=== PATIENT | female | born 1945 | race Caucasian/White ===

== ENCOUNTER 2016-09-05 05:38 | Day surgery (SDC) | payer MEDICARE, OTHER ==
[~2016-09-05] VITALS: Ht 157.5 cm; Wt 79.2 kg
[~2016-09-05 05:38] MED LIST: HCTZ 25MG TAB25 MG PO; NORCO 325 MG-51 TAB PO; SINGULAIR 110 MG/TAB PO; VALIUM 5MG T5 MG/TAB PO; ZESTRIL 20MG TA20 MG PO
[2016-09-05 06:41] VITALS: BP 125/65; PULSE 78; TEMP 97.7
[2016-09-05] MEDS ORDERED: SEREVENT IH (06:52)
[2016-09-05] MEDS ORDERED: RT SPIRIVA18 MCG IH (06:52)
[2016-09-05] MEDS ORDERED: PROAIR HFA0.09 MG/AC IH (06:54)
[2016-09-05] MEDS ORDERED: LASIX 40MG TABL40 MG PO ×2 (06:55→07:06)
[2016-09-05] MEDS ORDERED: IRON325 MG PO (07:06)
[2016-09-05] MEDS ORDERED: THEO-24 20200 MG/CAP PO (07:07)
[2016-09-05] MEDS ORDERED: ATARAX 25MG25 MG/TAB PO (07:07)
[2016-09-05] MEDS ORDERED: BANOPHEN25 M1 PO (07:08)
[2016-09-05] MEDS ORDERED: K-TAB20 PO (07:08)
[2016-09-05] MEDS ORDERED: NORCO 325 MG-101 TAB PO (07:09)
[2016-09-05] MEDS ORDERED: CUTIVATE30 GM TOP (07:09)
[2016-09-05] MEDS ORDERED: B COMPLEX #11 TA1 PO (07:10)
[2016-09-05] MEDS ORDERED: VITAMIN D1000 IU PO (07:10)
[2016-09-05 08:25] VITALS: BP 116/65; PULSE 87; TEMP 98.1
[2016-09-05 08:40] VITALS: BP 103/54; PULSE 85
[2016-09-05 08:55] VITALS: BP 106/66; PULSE 82
[2016-09-05] MEDS ORDERED: TYLENOL W/COD1 UDTAB PO (08:55)
[2016-09-05 09:10] VITALS: BP 100/57; PULSE 79
== END 2016-09-05 09:40 | disposition home or self-care (01) ==
LOC: SDCO 05:38
DX: M72.0 Palmar fascial fibromatosis [Dupuytren] (principal)
CPT/HCPCS: J0690; J1885; J2405; J2704; J3010; J7120

== ENCOUNTER → 2017-01-01 | Outpatient (CLI) | payer MEDICARE, OTHER ==
[~2017-01-01] MED LIST changes: +ATARAX 25MG25 MG/TAB PO; +B COMPLEX #11 TA1 PO; +BANOPHEN25 M1 PO; +CUTIVATE30 GM TOP; +IRON325 MG PO; +K-TAB20 PO; +LASIX 40MG TABL40 MG PO; +NORCO 325 MG-101 TAB PO; +PROAIR HFA0.09 MG/AC IH; +RT SPIRIVA18 MCG IH; +SEREVENT IH; +THEO-24 20200 MG/CAP PO; +TYLENOL W/COD1 UDTAB PO; +VITAMIN D1000 IU PO
== END ==
LOC: MHCPAIN 12:00
DX: G89.29 Other chronic pain (principal); M47.817 Spondylosis without myelopathy or radiculopathy, lumbosacral region; M53.3 Sacrococcygeal disorders, not elsewhere classified; M50.90 Cervical disc disorder, unspecified, unspecified cervical region; R51 Headache; F17.210 Nicotine dependence, cigarettes, uncomplicated
CPT/HCPCS: G0463

== ENCOUNTER → 2017-02-10 | Outpatient (CLI) | payer MEDICARE, OTHER | LOC: MHCPAIN 13:13 | DX: G89.29 Other chronic pain (principal); M47.817 Spondylosis without myelopathy or radiculopathy, lumbosacral region; M53.3 Sacrococcygeal disorders, not elsewhere classified; F17.210 Nicotine dependence, cigarettes, uncomplicated | CPT/HCPCS: G0463 ==

== ENCOUNTER → 2017-05-12 | Outpatient (CLI) | payer MEDICARE, OTHER | LOC: MHCPAIN 10:56 | DX: G89.29 Other chronic pain (principal); M47.817 Spondylosis without myelopathy or radiculopathy, lumbosacral region; M53.3 Sacrococcygeal disorders, not elsewhere classified; M48.061 Spinal stenosis, lumbar region without neurogenic claudication | CPT/HCPCS: G0463 ==

== ENCOUNTER → 2017-08-13 | Outpatient (CLI) | payer MEDICARE, OTHER | LOC: MHCPAIN 10:23 | DX: G89.29 Other chronic pain (principal); M47.817 Spondylosis without myelopathy or radiculopathy, lumbosacral region; M54.16 Radiculopathy, lumbar region; M53.3 Sacrococcygeal disorders, not elsewhere classified; M48.061 Spinal stenosis, lumbar region without neurogenic claudication | CPT/HCPCS: G0463 ==

== ENCOUNTER → 2017-08-25 | Outpatient (CLI) | payer MEDICARE, OTHER | LOC: MHCPAIN 12:42 | DX: G89.29 Other chronic pain (principal); M47.817 Spondylosis without myelopathy or radiculopathy, lumbosacral region; M54.16 Radiculopathy, lumbar region; M53.3 Sacrococcygeal disorders, not elsewhere classified; M41.9 Scoliosis, unspecified | CPT/HCPCS: G0463 ==

== ENCOUNTER → 2017-09-19 | Outpatient (CLI) | payer MEDICARE, OTHER | LOC: MHCPAIN 10:13 | DX: G89.29 Other chronic pain (principal); M47.817 Spondylosis without myelopathy or radiculopathy, lumbosacral region; M54.16 Radiculopathy, lumbar region; M53.3 Sacrococcygeal disorders, not elsewhere classified; M47.814 Spondylosis without myelopathy or radiculopathy, thoracic region; M48.061 Spinal stenosis, lumbar region without neurogenic claudication | CPT/HCPCS: G0463 ==

== ENCOUNTER → 2017-12-24 | Outpatient (CLI) | payer MEDICARE, OTHER | LOC: MHCPAIN 09:49 | DX: G89.29 Other chronic pain (principal); M47.817 Spondylosis without myelopathy or radiculopathy, lumbosacral region; M54.16 Radiculopathy, lumbar region; M53.3 Sacrococcygeal disorders, not elsewhere classified; M47.814 Spondylosis without myelopathy or radiculopathy, thoracic region | CPT/HCPCS: G0463 ==

== ENCOUNTER → 2018-03-25 | Outpatient (CLI) | payer MEDICARE, OTHER | LOC: MHCPAIN 10:52 | DX: G89.29 Other chronic pain (principal); M47.817 Spondylosis without myelopathy or radiculopathy, lumbosacral region; M54.16 Radiculopathy, lumbar region; M53.3 Sacrococcygeal disorders, not elsewhere classified; M47.814 Spondylosis without myelopathy or radiculopathy, thoracic region | CPT/HCPCS: G0463 ==

== ENCOUNTER → 2018-06-30 | Outpatient (CLI) | payer MEDICARE, OTHER | LOC: MHCPAIN 10:46 | DX: G89.29 Other chronic pain (principal); M47.817 Spondylosis without myelopathy or radiculopathy, lumbosacral region; M54.16 Radiculopathy, lumbar region; M53.3 Sacrococcygeal disorders, not elsewhere classified; M47.814 Spondylosis without myelopathy or radiculopathy, thoracic region | CPT/HCPCS: G0463 ==

== ENCOUNTER → 2018-07-06 | Outpatient (CLI) | payer MEDICARE, OTHER | LOC: MHCPAIN 10:52 | DX: M47.817 Spondylosis without myelopathy or radiculopathy, lumbosacral region (principal); M54.16 Radiculopathy, lumbar region | CPT/HCPCS: J1100; Q9967 ==

== ENCOUNTER → 2018-09-30 | Outpatient (CLI) | payer MEDICARE, OTHER | LOC: MHCPAIN 10:27 | DX: G89.29 Other chronic pain (principal); M47.817 Spondylosis without myelopathy or radiculopathy, lumbosacral region; M54.16 Radiculopathy, lumbar region; M53.3 Sacrococcygeal disorders, not elsewhere classified; M47.814 Spondylosis without myelopathy or radiculopathy, thoracic region | CPT/HCPCS: G0463 ==

== ENCOUNTER → 2018-12-22 | Outpatient (CLI) | payer MEDICARE, OTHER | LOC: MHCPAIN 10:04 | DX: G89.29 Other chronic pain (principal); M47.817 Spondylosis without myelopathy or radiculopathy, lumbosacral region; M54.16 Radiculopathy, lumbar region; M53.3 Sacrococcygeal disorders, not elsewhere classified; M47.814 Spondylosis without myelopathy or radiculopathy, thoracic region | CPT/HCPCS: G0463 ==

== ENCOUNTER → 2019-02-24 | Outpatient (CLI) | payer MEDICARE, OTHER ==
[~2019-02-24] MED LIST changes: +ALDACTONE 25MG25 M1 PO; +ASPIRIN E.C. 8181 MG PO; +IBU800 M1 PO; +LEVAQUIN 5500 MG/TA1 PO; +LIDODERM 5% PATC1 EA TP; +LIPITOR20 MG PO; +MEDROL 4MG DOSPA4 MG PO; +NEURONTIN100 MG/CAP PO; +NEURONTIN300 MG/CAP PO; +NICODERM C14 MG/PATC TD; +PREDNISONE20 MG PO; +ZANAFLEX CAPSULE2 MG PO
== END ==
LOC: MHCPAIN 12:24
DX: M47.817 Spondylosis without myelopathy or radiculopathy, lumbosacral region (principal); M54.16 Radiculopathy, lumbar region
CPT/HCPCS: G0463

== ENCOUNTER → 2019-02-25 | Outpatient (CLI) | payer MEDICARE, OTHER | LOC: MHCPAIN 08:22 | DX: M48.07 Spinal stenosis, lumbosacral region (principal) | CPT/HCPCS: J1100; Q9967 ==

== ENCOUNTER → 2019-03-10 | Outpatient (CLI) | payer MEDICARE, OTHER | LOC: MHCPAIN 10:30 | DX: M47.817 Spondylosis without myelopathy or radiculopathy, lumbosacral region (principal); M54.16 Radiculopathy, lumbar region | CPT/HCPCS: G0463 ==

== ENCOUNTER 2019-03-14 09:04 | Emergency (ER) | payer MEDICARE, OTHER ==
[~2019-03-14] VITALS: Ht 154.9 cm; Wt 72.3 kg
[~2019-03-14 09:04] MED LIST changes: -ALDACTONE 25MG25 M1 PO; -ASPIRIN E.C. 8181 MG PO; -IBU800 M1 PO; -LEVAQUIN 5500 MG/TA1 PO; -LIDODERM 5% PATC1 EA TP; -LIPITOR20 MG PO; -MEDROL 4MG DOSPA4 MG PO; -NEURONTIN100 MG/CAP PO; -NEURONTIN300 MG/CAP PO; -NICODERM C14 MG/PATC TD; -PREDNISONE20 MG PO; -ZANAFLEX CAPSULE2 MG PO
[2019-03-14 09:11] VITALS: TEMP 98.5
[2019-03-14] MEDS ORDERED: NORCO 325 MG-101 TAB PO (09:23)
[2019-03-14] MEDS ORDERED: ZANAFLEX CAPSULE2 MG PO (09:23)
[2019-03-14] MEDS ORDERED: NEURONTIN100 MG/CAP PO ×2 (09:31)
[2019-03-14] MEDS ORDERED: PREDNISONE20 MG PO (10:57)
[2019-03-14] MEDS ORDERED: NEURONTIN300 MG/CAP PO (11:18)
[2019-03-14 11:35] VITALS: BP 140/73; PULSE 74
== END 2019-03-14 11:35 | disposition home or self-care (01) ==
LOC: COL.ER 09:04
DX: M54.5 Low back pain (principal); J44.9 Chronic obstructive pulmonary disease, unspecified; F17.210 Nicotine dependence, cigarettes, uncomplicated; Z90.89 Acquired absence of other organs; Z79.51 Long term (current) use of inhaled steroids
CPT/HCPCS: J1170; J1885

== ENCOUNTER 2019-03-26 19:00 | Inpatient (IN) | payer MEDICARE, OTHER ==
[~2019-03-26] VITALS: Ht 154.9 cm; Wt 78.3 kg
[~2019-03-26 19:00] MED LIST changes: +NEURONTIN100 MG/CAP PO; +NEURONTIN300 MG/CAP PO; +PREDNISONE20 MG PO; +ZANAFLEX CAPSULE2 MG PO
[2019-03-26 20:13] LABS: BASO % 0.1 % (0.0-2.0); EOS % 0.1 % (0-4.0); GRAN # 6.5 (1.4-6.5); HEMOGLOBIN 10.2 g/dl (12.5-16.0); LYMPH # 1.3 (1.2-3.4); LYMPH % 15.6 % (20.0-51.0); MEAN CELL VOLUME 96 fl (80.0-100.0); MEAN CORPUSCULAR HEMOGLOBIN 31 pg (27.0-31.0); MEAN CORPUSCULAR HGB CONC 33 g/dl (33.0-37.0); MONO # 0.6 (0.1-0.6); PLATELET COUNT 278 K/mm3 (130-400); RED BLOOD COUNT 3.25 M/mm3 (4.10-5.30); REDCELL DISTRIBUTION WIDTH-CV 16.4 % (11.5-14.5)
[2019-03-26 20:17] LABS: ARTERIAL BLD GAS O2 SATURATION 85.8 % (92-100); ARTERIAL BLD GAS TCO2 CT 33.6; ARTERIAL BLOOD GAS BASE EXCESS 6.6 (-2-2); ARTERIAL BLOOD GAS HCO3 32.1 meq/L (22-26); ARTERIAL BLOOD GAS PCO2 50.1 mmHg (35-45); ARTERIAL BLOOD GAS pH 7.42 (7.35-7.45)
[2019-03-26 20:18] LABS: HEMATOCRIT 31.3 % (37.0-47.0)
[2019-03-26 20:18] LABS: ARTERIAL BLOOD GAS PO2 48.3 mmHg (80-100)
[2019-03-26 20:28] LABS: ALANINE AMINOTRANSFERASE 13 U/L (9-52); ALBUMIN 3.4 gm/dL (3.5-5.0); ALKALINE PHOSPHATASE 54 U/L (50-136); ANION GAP 6 mmol/L (7-16); AST,SGOT 13 U/L (15-37); BILIRUBIN,TOTAL 0.3 mg/dL (0.0-1.0); BLOOD UREA NITROGEN 27 mg/dL (7-17); C-REACTIVE PROTEIN 6.4 mg/dL (0.0-0.9); CALCIUM 9.5 mg/dL (8.4-10.2); CARBON DIOXIDE 30 mmol/L (22-30); CHLORIDE 102 mmol/L (98-107); CREATININE, serum 0.92 (0.52-1.25); GLUCOSE 118 mg/dL (74-106); POTASSIUM 3.8 mmol/L (3.4-5.0); SODIUM 138 mmol/L (137-145); TOTAL PROTEIN 6.5 gm/dL (6.4-8.2)
[2019-03-26 20:37] LABS: TROPONIN-I < 0.012 ng/mL (0.000-0.035)
[2019-03-26 22:07] VITALS: BP 155/59; PULSE 99; TEMP 98.9
--- NOTE | 2019-03-26 22:17 | NUR ---
Arrived to room 353 at this time
[2019-03-26] MEDS ORDERED: NEURONTIN300 MG/CAP PO (22:29)
[2019-03-26] MEDS ORDERED: LEVAQUIN 5500 MG/TA1 PO (22:33)
[2019-03-26] MEDS ORDERED: IBU800 M1 PO (22:34)
[2019-03-26] MEDS ORDERED: LIDODERM 5% PATC1 EA TP (22:35)
--- NOTE | 2019-03-26 22:42 | NUR ---
Assessment complete. Lungs dimished and coarse. Heart sounds normal. Bowels active x4. Pulses present throughout. Bilateral lower leg edema +3 and tender to touch. INT right forearm without complications. Orientated to medical floor and room. Will notify Dr. Lei of patient arrival and patient requested gabpentin for tonight. Will swab for RVP and obtain UA
[2019-03-26 23:34] LABS: MUCOUS Present /lpf; PH 5 (5-8); SQUAMOUS EPITHELIAL 0-2 /hpf; URINE APPEARANCE Clear; URINE BACTERIA None Seen /hpf; URINE BILIRUBIN Negative (NEGATIVE); URINE BLOOD Negative (NEGATIVE); URINE COLOR Straw; URINE GLUCOSE Negative (NEGATIVE); URINE KETONE Negative (NEGATIVE); URINE LEUKOCYTE ESTERASE Negative (NEGATIVE); URINE NITRATE Negative (NEGATIVE); URINE PROTEIN(semi-quant) Negative (NEGATIVE); URINE RBC 0-2 /hpf; URINE UROBILINOGEN Negative (NEGATIVE); URINE WBC 0-2 /hpf
[2019-03-26 23:38] VITALS: BP 130/62; PULSE 89; TEMP 98.8
[2019-03-26 23:38] LABS: COLLECTION METHOD CLEAN CATCH
--- NOTE | 2019-03-27 00:36 | NUR ---
Resting in bed. Denies needs. Call light in reach
--- NOTE | 2019-03-27 01:52 | NUR ---
Resting in bed asleep. Call light in reach.
[2019-03-27 03:49] VITALS: BP 137/60; PULSE 90; TEMP 98
--- NOTE | 2019-03-27 03:59 | NUR ---
Patient denies needs. Denies pain. Call light in reach.
--- NOTE | 2019-03-27 06:22 | NUR ---
Patient had uneventful night. Urine output recorded. Resting in bed this AM. Denies needs. Call light in reach.
--- NOTE | 2019-03-27 06:47 | NUR ---
Report given to CARMINA Huerta
[2019-03-27 07:23] VITALS: BP 138/62; PULSE 80; TEMP 97.9
[2019-03-27 08:47] LABS: BASO % 0.2 % (0.0-2.0); GRAN % 79.7 % (42.2-75.2); HEMOGLOBIN 10.8 g/dl (12.5-16.0); LYMPH # 0.8 (1.2-3.4); LYMPH % 13.2 % (20.0-51.0); MEAN CELL VOLUME 97 fl (80.0-100.0); MEAN CORPUSCULAR HEMOGLOBIN 32 pg (27.0-31.0); MEAN CORPUSCULAR HGB CONC 33 g/dl (33.0-37.0); MEAN PLATELET VOLUME 9.5 fl (7.4-10.4); MONO # 0.3 (0.1-0.6); MONO % 4.8 % (1.7-9.3); PLATELET COUNT 300 K/mm3 (130-400); RED BLOOD COUNT 3.41 M/mm3 (4.10-5.30); REDCELL DISTRIBUTION WIDTH-CV 16.4 % (11.5-14.5)
[2019-03-27 08:49] LABS: ANION GAP 4 mmol/L (7-16); BLOOD UREA NITROGEN 24 mg/dL (7-17); CALCIUM 9.1 mg/dL (8.4-10.2); CARBON DIOXIDE 35 mmol/L (22-30); CHLORIDE 101 mmol/L (98-107); CHOLESTEROL 160 mg/dL (120-200); CHOLESTEROL RISK RATIO 3.6; CREATININE, serum 0.78 (0.52-1.25); GLUCOSE 114 mg/dL (74-106); HDL CHOLESTEROL 44 mg/dL; LDL CHOLESTEROL 103 mg/dL; MAGNESIUM 1.9 mg/dL (1.6-2.3); POTASSIUM 3.2 mmol/L (3.4-5.0); SODIUM 140 mmol/L (137-145); TRIGLYCERIDE 66 mg/dL
--- NOTE | 2019-03-27 09:02 | NUR ---
Pt awake and alert this morning, no C/O pain at this time, shift assessments complete, left Pt call light in reach, bed in lowest position.
[2019-03-27 09:11] LABS: TROPONIN-I < 0.012 ng/mL (0.000-0.035)
[2019-03-27 09:46] LABS: THEOPHYLLINE 1.1 ug/mL (10.0-20.0)
[2019-03-27 11:28] VITALS: BP 135/62; PULSE 90; TEMP 98.6
[2019-03-27 13:31] LABS: PARTIAL THROMBOPLASTIN TIME 27.3 SECONDS (26.0-37.0)
[2019-03-27 16:18] VITALS: BP 134/57; PULSE 73; TEMP 98.3
--- NOTE | 2019-03-27 16:29 | NUR ---
Plan: To return home with her granddaughter Megha as care support [phone]. patient also listed granddaughter as EMR, and she does not currently have a DPOA. Patient resides in [facility]. Assess: SW met with patient at bedside. Patient reported some concern in regards to a procedure she may have to endure on friday(catherization). Sw provided support. Patient utilizes 2 liters of oxygen, a CPAP, a walker and a wheelchair. Patient reports that her PCP is DR. Flood( appt coming up on May 11), and her Pulmologist is Dr. Faulkner(appt coming up on Apr 19). Patient reports that she gets her medications from [facility], and [facility] [place]. Patient declined [facility]HS at this time, siting that she has a large number of friends for support. plan: No concerns at this time. Patient was educated about community resources.
--- NOTE | 2019-03-27 18:06 | NUR ---
Pt resting in the room today, no C/O pain during the day, VS have remained stable.
--- NOTE | 2019-03-27 21:15 | NUR ---
Resting in bed. Assessment complete. Lungs clear. Heart sounds normal. Bowels active x4. Pulses present throughout. Bilateral lower leg edema +2 present. Patient reports legs feeling much better since yesterday. Reporting 5/10 pain in legs-requested scheduled gabpentin- provided to patient at this time. Denies other needs. Call light in reach. Heparin infusing into right forearm as ordered. Will monitor.
--- NOTE | 2019-03-27 21:30 | NUR ---
Heparin increased to 12ml/hr and bolus of 1000 units given per protocol at this time.
[2019-03-27 22:39] VITALS: BP 138/63; PULSE 76; TEMP 98.3
--- NOTE | 2019-03-27 23:59 | NUR ---
Resting in bed. Denies needs. Telemetry leads fixed. Call light in reach.
[2019-03-28 04:08] VITALS: BP 140/56; PULSE 70; TEMP 98.3
--- NOTE | 2019-03-28 04:23 | NUR ---
Resting in bed. Denies needs. Call light in reach.
--- NOTE | 2019-03-28 05:00 | NUR ---
Heparin gtt increased to 13.5 at this time. Verified by CARMINA Rueda
--- NOTE | 2019-03-28 06:25 | NUR ---
Patient had uneventful night. Resting in bed this AM.
--- NOTE | 2019-03-28 06:37 | NUR ---
Report given to CARMINA Huerta
[2019-03-28 08:01] VITALS: BP 133/58; PULSE 71; TEMP 98.5
--- NOTE | 2019-03-28 09:39 | NUR ---
Pt awake and alert upon entry, PT in room with Pt, Some C/O pain in lower back, lidocaine patch applied for relief, shift assessments complete, left Pt sitting in recliner, call light in reach.
[2019-03-28 11:37] LABS: BASO % 0.5 % (0.0-2.0); EOS # 0.1 (0.0-0.7); EOS % 0.9 % (0-4.0); GRAN # 5.2 (1.4-6.5); GRAN % 63.8 % (42.2-75.2); HEMOGLOBIN 11.5 g/dl (12.5-16.0); LYMPH # 2.1 (1.2-3.4); LYMPH % 25.6 % (20.0-51.0); MEAN CELL VOLUME 98 fl (80.0-100.0); MEAN CORPUSCULAR HEMOGLOBIN 31 pg (27.0-31.0); MEAN CORPUSCULAR HGB CONC 32 g/dl (33.0-37.0); MEAN PLATELET VOLUME 8.9 fl (7.4-10.4); MONO # 0.7 (0.1-0.6); PLATELET COUNT 341 K/mm3 (130-400); RED BLOOD COUNT 3.69 M/mm3 (4.10-5.30); REDCELL DISTRIBUTION WIDTH-CV 16.2 % (11.5-14.5)
[2019-03-28 11:45] VITALS: BP 121/63; PULSE 72; TEMP 98.8
[2019-03-28 11:53] LABS: CALCIUM 9.3 mg/dL (8.4-10.2); CREATININE, serum 0.8 (0.52-1.25)
[2019-03-28 11:55] LABS: POTASSIUM 2.8 mmol/L (3.4-5.0)
[2019-03-28 15:16] VITALS: BP 114/54; PULSE 94; TEMP 98.4
--- NOTE | 2019-03-28 18:36 | NUR ---
Pt rested in the room today, has been sitting in the recliner a good portion of the day, some C/O pin in lower back, VS have remained stable.
[2019-03-28 19:25] VITALS: BP 118/59; PULSE 82; TEMP 98.1
--- NOTE | 2019-03-28 20:30 | NUR ---
Shift assessment complete. Pt resting in bedside recliner, awake, a&o, cooperative c cares. Pt reports chronic back pain, will give PRN pain med c hs meds per pt request of home dose. Pt denies any other c/o. IV patent; Hep gtt infusing per order. Tele in place. Pt denies further needs. Call light in reach, will continue to monitor.
[2019-03-28 23:44] VITALS: BP 135/67; PULSE 76; TEMP 97.6
[2019-03-29 05:12] VITALS: BP 125/65; PULSE 71; TEMP 98.7
[2019-03-29 07:46] LABS: HEMOGLOBIN 11.3 g/dl (12.5-16.0); MEAN CELL VOLUME 96 fl (80.0-100.0); MEAN CORPUSCULAR HEMOGLOBIN 31 pg (27.0-31.0); MEAN CORPUSCULAR HGB CONC 32 g/dl (33.0-37.0); MEAN PLATELET VOLUME 8.7 fl (7.4-10.4); PLATELET COUNT 348 K/mm3 (130-400); RED BLOOD COUNT 3.66 M/mm3 (4.10-5.30); REDCELL DISTRIBUTION WIDTH-CV 15.9 % (11.5-14.5)
[2019-03-29 07:49] LABS: HEMATOCRIT 35.3 % (37.0-47.0)
[2019-03-29 08:03] LABS: CALCIUM 9.4 mg/dL (8.4-10.2); CREATININE, serum 0.96 (0.52-1.25)
[2019-03-29 09:16] VITALS: BP 116/48; PULSE 86; TEMP 98.1
--- NOTE | 2019-03-29 09:45 | NUR ---
Pt assessment completed and charted. Morning medications administered per MAY. Pt kept NPO pending Echo results and possible adrien scan/cath procedure. Pt A&O, independent in room. Pt on 3L NC, denies SOB at this time, breathing is even and unlabored, has walked w/ therapy, has steady gait. Heart RRR, denies chest pain, dizziness, palpitations, N/V/D. RFA IV w/ hep gtt at 13.5 ml/hr running w/o complications. BLE 1+ edema noted, per pt has improved since admission. Pt on tele. No needs expressed per pt. Call light within reach.
[2019-03-29 11:01] LABS: BAND 8 % (0-10); EOSINOPHIL 2 % (0-4); LYMPHOCYTE 47 % (20.0-51.0); MYELOCYTE 1 % (0-0); NEUTROPHILS 34 % (42.0-75.2); SCHISTOCYTES 1+
[2019-03-29 11:02] LABS: PLATELET ESTIMATE NORMAL (NORMAL); TARGET CELLS 1+
[2019-03-29] MEDS ORDERED: NICODERM C14 MG/PATC TD (11:09)
[2019-03-29] MEDS ORDERED: LIPITOR20 MG PO (11:10)
[2019-03-29] MEDS ORDERED: ALDACTONE 25MG25 M1 PO (11:10)
[2019-03-29] MEDS ORDERED: ASPIRIN E.C. 8181 MG PO (11:10)
[2019-03-29] MEDS ORDERED: LASIX 40MG TABL40 MG PO (11:11)
[2019-03-29] MEDS ORDERED: MEDROL 4MG DOSPA4 MG PO (11:14)
[2019-03-29 11:34] VITALS: BP 111/49; PULSE 75; TEMP 98.6
--- NOTE | 2019-03-29 12:00 | NUR ---
Pt hep gtt to dc, pt to discharge this afternoon post ex ox. Pt denies pain at this time. No other needs expressed.
--- NOTE | 2019-03-29 12:20 | NUR ---
PT ON 2 LPM NC @ REST IN CHAIR. SPO2 85%, INCREASING TO 93% WITH SEVERAL DEEP BREATHS. PT WALKED WITH O2 @ 2 LPM NC SPO2 87%, INCREASING TO 92% WITH SEVERAL DEEP BREATHS. PT LEFT ON O2 @ 3 LPM NC.
--- NOTE | 2019-03-29 13:01 | NUR ---
Initial visit; Patient thanked Tree Puller for looking in on her and offering God's blessings.
--- NOTE | 2019-03-29 15:37 | NUR ---
Pt discharged, all discharge instructions discussed and reviewed w/ patient who verbalized unerstanding, all questions answered. RFA IV dc'd w/o complications and catheter tip intact. Pt escorted out via WC by NIK Mcgee.
== END 2019-03-29 15:00 | disposition home or self-care (01) | DRG 291 ==
LOC: COL.ER 19:00 → MEDICAL 21:06
PROVIDERS: Emergency Medicine; Internal Medicine Cardiovascular Disease; Student in an Organized Health Care Education/Training Program; ADMIT Hospitalist
DX: I50.33 Acute on chronic diastolic (congestive) heart failure (principal); J96.21 Acute and chronic respiratory failure with hypoxia; J44.1 Chronic obstructive pulmonary disease with (acute) exacerbation; E87.3 Alkalosis; I20.0 Unstable angina; G89.29 Other chronic pain; M54.9 Dorsalgia, unspecified; G47.33 Obstructive sleep apnea (adult) (pediatric); F17.210 Nicotine dependence, cigarettes, uncomplicated; M48.56XD Collapsed vertebra, not elsewhere classified, lumbar region, subsequent encounter for fracture with routine healing; I27.20 Pulmonary hypertension, unspecified; Z79.891 Long term (current) use of opiate analgesic; Z79.52 Long term (current) use of systemic steroids; Z99.81 Dependence on supplemental oxygen; Z90.710 Acquired absence of both cervix and uterus; Z88.1 Allergy status to other antibiotic agents; Z88.2 Allergy status to sulfonamides
CPT/HCPCS: 99222-AI; 99233-AI; 99239; J1644; J1650; J1940; J2930; J7512

== ENCOUNTER → 2019-08-23 | Outpatient (CLI) | payer MEDICARE, OTHER ==
[~2019-08-23] MED LIST changes: +ALDACTONE 25MG25 M1 PO; +ASPIRIN E.C. 8181 MG PO; +IBU800 M1 PO; +LEVAQUIN 5500 MG/TA1 PO; +LIDODERM 5% PATC1 EA TP; +LIPITOR20 MG PO; +MEDROL 4MG DOSPA4 MG PO; +NICODERM C14 MG/PATC TD
== END ==
LOC: MHCPAIN 10:12
DX: M47.817 Spondylosis without myelopathy or radiculopathy, lumbosacral region (principal); M54.5 Low back pain; M53.3 Sacrococcygeal disorders, not elsewhere classified; M54.16 Radiculopathy, lumbar region; G89.29 Other chronic pain
CPT/HCPCS: G0463

== ENCOUNTER → 2019-11-17 | Outpatient (CLI) | payer MEDICARE, OTHER | LOC: MHCPAIN 09:49 | DX: M47.817 Spondylosis without myelopathy or radiculopathy, lumbosacral region (principal); M54.5 Low back pain; M53.3 Sacrococcygeal disorders, not elsewhere classified; G89.29 Other chronic pain | CPT/HCPCS: G0463 ==

== ENCOUNTER → 2020-02-15 | Outpatient (CLI) | payer MEDICARE, OTHER | LOC: MHCPAIN 10:09 | DX: M47.817 Spondylosis without myelopathy or radiculopathy, lumbosacral region (principal); M53.3 Sacrococcygeal disorders, not elsewhere classified; M54.5 Low back pain; G89.29 Other chronic pain | CPT/HCPCS: G0463 ==

== ENCOUNTER → 2020-05-15 | Outpatient (CLI) | payer MEDICARE, OTHER | LOC: MHCPAIN 09:54 | DX: M47.817 Spondylosis without myelopathy or radiculopathy, lumbosacral region (principal); M54.16 Radiculopathy, lumbar region; M53.3 Sacrococcygeal disorders, not elsewhere classified; M79.18 Myalgia, other site | CPT/HCPCS: G0463 ==

== ENCOUNTER → 2020-08-14 | Outpatient (CLI) | payer MEDICARE, OTHER | LOC: MHCPAIN 09:47 | DX: M47.817 Spondylosis without myelopathy or radiculopathy, lumbosacral region (principal); M54.5 Low back pain; M53.3 Sacrococcygeal disorders, not elsewhere classified; G89.29 Other chronic pain | CPT/HCPCS: G0463 ==

== ENCOUNTER → 2020-11-15 | Outpatient (CLI) | payer MEDICARE, OTHER | LOC: MHCPAIN 10:32 | DX: M47.816 Spondylosis without myelopathy or radiculopathy, lumbar region (principal); M41.86 Other forms of scoliosis, lumbar region; M54.5 Low back pain; M53.3 Sacrococcygeal disorders, not elsewhere classified | CPT/HCPCS: G0463 ==

== ENCOUNTER → 2021-02-07 | Outpatient (CLI) | payer MEDICARE, OTHER | LOC: MHCPAIN 10:05 | DX: M47.817 Spondylosis without myelopathy or radiculopathy, lumbosacral region (principal); M54.50 Low back pain, unspecified; M53.3 Sacrococcygeal disorders, not elsewhere classified; M41.86 Other forms of scoliosis, lumbar region | CPT/HCPCS: G0463 ==

== ENCOUNTER → 2021-02-21 | Outpatient (CLI) | payer MEDICARE, OTHER | LOC: MHCPAIN 13:26 | DX: M79.18 Myalgia, other site (principal); M54.50 Low back pain, unspecified; M53.3 Sacrococcygeal disorders, not elsewhere classified | CPT/HCPCS: J1040 ==

== ENCOUNTER → 2021-05-08 | Outpatient (CLI) | payer MEDICARE, OTHER | LOC: MHCPAIN 10:27 | DX: M47.816 Spondylosis without myelopathy or radiculopathy, lumbar region (principal); M54.50 Low back pain, unspecified; M54.2 Cervicalgia; G89.29 Other chronic pain | CPT/HCPCS: G0463 ==

== ENCOUNTER → 2021-08-01 | Outpatient (CLI) | payer MEDICARE, OTHER | LOC: MHCPAIN 10:21 | DX: M79.18 Myalgia, other site (principal); M54.50 Low back pain, unspecified; M53.3 Sacrococcygeal disorders, not elsewhere classified; M41.86 Other forms of scoliosis, lumbar region | CPT/HCPCS: G0463; J1040 ==

== ENCOUNTER → 2021-11-07 | Outpatient (CLI) | payer MEDICARE, OTHER | LOC: MHCPAIN 09:39 | DX: M47.817 Spondylosis without myelopathy or radiculopathy, lumbosacral region (principal); M54.50 Low back pain, unspecified; M53.3 Sacrococcygeal disorders, not elsewhere classified; M54.2 Cervicalgia | CPT/HCPCS: G0463 ==

== ENCOUNTER → 2022-01-16 | Outpatient (CLI) | payer MEDICARE, OTHER | LOC: MHCPAIN 10:41 | DX: M54.2 Cervicalgia (principal); M54.50 Low back pain, unspecified; M41.86 Other forms of scoliosis, lumbar region; M79.2 Neuralgia and neuritis, unspecified | CPT/HCPCS: G0463 ==